=== PATIENT | female | born 1990 | race Hispanic/Latino ===

== ENCOUNTER 2022-06-08 17:03 | Emergency (ER) | payer BC ==
--- OUTSIDE RECORDS SUMMARY | 2022-06-08 17:05 | XMS REPORT | Continuity of Care Document ---
:1990 Author Organization [facility] t Address [address] [place] [address] Care Team Providers Name Role Phone Unavailable Unavailable Unavailable Payers Payer Name Policy Type Policy Number Effective Date Expiration Date S ource [employer] FED [employer] [id number] 2016 00:00:00 Problems This patient has no known problems. Allergies, Adverse Reactions, Alerts Allergy Allergy Status Severity Reaction(s) Onset Inactive Treating Comm ents Source Name Type Date Date Clinician PENICILL Drug Active Anaphylaxis Uni vers INS Class 7-08 ity of 00:00: [address] Medications This patient has no known medications. Procedures This patient has no known procedures. Encounters Start End Encounter Admission Attending Care Care Encounter Source Date/Time Date/Time Type Type Clinicians Facility Department ID 2020-04-02 2020-04-02 Outpatient R [facility] [id number] [address] 08:00:00 08:00:00 ity of [facility] Results This patient has no known results.
[2022-06-08] MEDS ORDERED: ACT CHARCOAL/SORB 50 GM/240ML ONE (17:30)
--- NOTE | 2022-06-08 17:37 | ER ---
Nurse's Notes [facility] Name: Tana Wallace Age: 32 yrs Sex: Female : 1990 Arrival Date: 06/08/2022 Time: 17:05 Bed 7 Private MD: Diagnosis: Suicide attempt;Depression Presentation: 06/08 17:12 Chief complaint: Patient states: I took 20, 20mg Citalopram aprox 45min ago. states [facility] that she has been feeling depressed and has been stressed out about work. Pt stated that she attempted to vomit but nothing came up. Coronavirus screen: Vaccine status: Patient reports receiving the 2nd dose of the covid vaccine. Ebola Screen: Patient negative for fever greater than or equal to 101.5 degrees Fahrenheit, and additional compatible Ebola Virus Disease symptoms Patient denies exposure to infectious person. Patient denies travel to an Ebola-affected area in the 21 days before illness onset. Initial Sepsis Screen: Does the patient meet any 2 criteria? No. Patient's initial sepsis screen is negative. Does the patient have a suspected source of infection? No. Patient's initial sepsis screen is negative. Risk Assessment: Do you want to hurt yourself or someone else? Patient reports desire/thoughts of hurting themselves or someone else. Provider notified. Onset of symptoms was June 08, 2022. 17:12 Method Of Arrival: Ambulatory [facility] 17:12 Acuity: ABBIE 2 [facility] Historical: - Allergies: 17:15 egg yolks; [facility] 17:15 PENICILLINS; [facility] - PMHx: 17:15 Asthma; Depressive disorder; [facility] - Immunization history:: Adult Immunizations up to date. - Social history:: Smoking status: unknown. Screenin:16 Abuse screen: Denies threats or abuse. Denies injuries from another. Nutritional [facility] screening: No deficits noted. Tuberculosis screening: No symptoms or risk factors identified. Fall Risk Assessment: 17:17 General: Appears obese, unkempt, Behavior is anxious, crying. General: contacted poison [facility] control reference #[id number] spoke with Hernando who advised that pt can have charcoal x1 and complete basic OD labs. evaluation for 6-8 hr before medically cleared. . Pain: Denies pain. Complains of pain in face Pain currently is 4 out of 10 on a pain scale. Quality of pain is described as aching, Pain began gradually, Is continuous, Alleviated by nothing. 20:52 Reassessment: Patient in low pelaez's in bed, aware of treatment plan, denies pain or aa9 concerns. sitter at bedside. 22:41 Reassessment: Tracy (mother) [phone] Kirill Wallace () [phone]. aa9 Patient ambulated to restroom independently. Denies any pain or concerns at this time. 06/09 02:00 Reassessment: Patient and/or family updated on plan of care and expected duration. Pain aa9 level reassessed. Patient denies pain at this time. pt supine in bed, breathing equal and unlabored, denies concerns at this time.. Overdose: 04:14 [place] Suicide Severity Screening: "In the past month, have you wished you were aa9 or wished you could go to sleep and not wake up?" Patient responds "yes." "In the past month, have you actually had any thoughts of killing yourself?" Patient responds "yes." Based off client's responses, additional C-SSRS screening questions required. "In your lifetime, have you ever done anything, started to do anything, or prepared to do anything to end your life?" Patient responds "yes." Patient reports suicidal intent within 3 past months. 04:15 [place] Suicide Severity Screening: "In the past month, have you wished you were aa9 or wished you could go to sleep and not wake up?" Patient responds "yes." Based off client's responses, additional C-SSRS screening questions required. Vital Signs: 06/08 17:12 BP 129 / 79; Pulse 89; Resp 17; Temp 98.2; Pulse Ox 99% ; Weight 94.35 kg; Height 5 ft. jh6 4 in. (162.56 cm); Pain 3/10; 20:46 BP 105 / 60; Pulse 94; Resp 15 S; Pulse Ox 100% on R/A; aa9 23:48 BP 116 / 75; Pulse 77; Pulse Ox 99% on R/A; aa9 06/09 01:58 BP 116 / 64; Pulse 75; Resp 16 S; Pulse Ox 100% on R/A; Pain 0/10; aa9 06/08 17:12 Body Mass Index 35.70 (94.35 kg, 162.56 cm) [facility] ED Course: 06/08 17:05 Patient arrived in ED. bd 17:06 Tana Acharya, RN is Primary Nurse. [facility] 17:07 Librado Quiñonez DO is Attending Physician. ms3 17:15 Triage completed. [facility] 17:16 Arm band placed on left wrist. Patient placed in the treatment room, on a stretcher, on [facility] monitoring manager, on pulse oximetry, Patient clothing removed and placed in gown. 17:16 Initial lab(s) drawn, by wy, sent to lab. EKG done, by ED staff, reviewed by Librado [facility] Olamide DOWNEY. Inserted saline lock: 20 gauge in left antecubital area, using aseptic technique. 19:20 Primary Nurse role handed off by Tana Acharya, FIDELINA [facility] 06/09 01:04 faxed patient clinicals to all available [facility] facilities. [facility] 03:14 Nurse to Nurse with Katelyn from [facility]. [facility] 03:19 administrative approval given Amaury Avalos/ patient has been accepted to [address]/ Dr. Lowery accepted the patient in transfer. 04:13 Caitlyn John, FIDELINA is Primary Nurse. [facility] 04:14 No provider procedures requiring assistance completed. IV discontinued, intact, aa9 bleeding controlled, No redness/swelling at site. Pressure dressing applied. 04:16 Patient has correct armband on for positive identification. aa9 Administered Medications: 06/08 17:27 Drug: Charcoal (activated charcoal) Suspension 50 grams Route: PO; [facility] 06/09 04:13 Follow up: Response: No adverse reaction 9 06/08 17:28 Drug: NS 0.9% 1000 ml Route: IV; Rate: 1000 ml; Site: left antecubital; [facility] 06/09 04:13 Follow up: Response: No adverse reaction; IV Status: Completed infusion; IV Intake: aa9 950ml Medication: 04:14 VIS not applicable for this client. aa9 Intake: 04:13 IV: 950ml; Total: 950ml. aa9 Outcome: 06/08 17:36 ER care complete, transfer ordered by . ms3 06/09 04:15 Transferred by ground EMS Transfer form completed. Note: [facility] aa9 Condition: stable Discharge instructions given to patient, Instructed on discharge instructions, follow up and referral plans. the need for transfer, Demonstrated understanding of instructions, follow-up care. 04:16 Patient left the ED. aa9 Signatures: Keisha Pérez MyKena mw2 Libraod Quiñonez DO DO ms3 Tana Acharya, RN RN jh6 Caitlyn John RN RN aa9
--- NOTE | 2022-06-08 17:37 | EDPHYS ---
Physician Documentation [facility] Name: Tana Wallace Age: 32 yrs Sex: Female : 1990 Arrival Date: 06/08/2022 Time: 17:05 Bed 7 Private MD: ED Physician Librado Quiñonez HPI: 06/08 17:12 This 32 yrs old Female presents to ER via Unassigned with complaints of ms3 Overdose. 17:12 32-year-old female with past medical history of anxiety and depression presents via POV ms3 after taking 20-20 mg citalopram tablets 20 minutes prior to arrival. Patient denies pain at this time. Patient states she has had a lot of depression and anxiety lately related with her job and her boss. Patient denies alleviating or inciting factors. Patient denies previous suicide attempts.. Historical: - Allergies: 17:15 egg yolks; jh6 17:15 PENICILLINS; jh6 - PMHx: 17:15 Asthma; Depressive disorder; 6 - Immunization history:: Adult Immunizations up to date. - Social history:: Smoking status: unknown. ROS: 17:12 Constitutional: Negative for fever, and chills. Neck: Negative for injury, pain, and ms3 swelling, Cardiovascular: Negative for chest pain, and palpitations. Respiratory: Negative for shortness of breath, cough, wheezing, and pleuritic chest pain, Abdomen/GI: Negative for abdominal pain, nausea, vomiting, diarrhea, and constipation. 17:12 Neuro: Positive for headache. 17:12 All other systems are negative. Exam: 17:12 Constitutional: This is a well developed, well nourished patient who is awake, alert, ms3 and in no acute distress. Head/Face: Normocephalic, atraumatic. Neck: Trachea midline, no cervical lymphadenopathy. Supple, full range of motion without nuchal rigidity, or vertebral point tenderness. No Meningismus. Chest/axilla: Normal chest wall appearance and motion. Nontender with no deformity. Cardiovascular: Regular rate and rhythm with a normal S1 and S2. No gallops, murmurs, or rubs. Normal PMI, no JVD. No pulse deficits. Respiratory: Lungs have equal breath sounds bilaterally, clear to auscultation and percussion. No rales, rhonchi or wheezes noted. No increased work of breathing, no retractions or nasal flaring. Abdomen/GI: Soft, non-tender, with normal bowel sounds. No distension or tympany. No guarding or rebound. No evidence of tenderness throughout. Skin: Warm, dry with normal turgor. Normal color with no rashes, no lesions, and no evidence of cellulitis. MS/ Extremity: Pulses equal, no cyanosis. Neurovascular intact. Full, normal range of motion. Neuro: Awake and alert, GCS 15, oriented to person, place, time, and situation. Cranial nerves II-XII grossly intact. Motor strength 5/5 in all extremities. Sensory grossly intact. Cerebellar exam normal. Normal gait. Psych: Awake, alert, with orientation to person, place and time. Behavior, mood, and affect are within normal limits. 17:12 ECG was reviewed by the Attending Physician. ms3 Vital Signs: 17:12 BP 129 / 79; Pulse 89; Resp 17; Temp 98.2; Pulse Ox 99% ; Weight 94.35 kg; Height 5 ft. jh6 4 in. (162.56 cm); Pain 3/10; 20:46 BP 105 / 60; Pulse 94; Resp 15 S; Pulse Ox 100% on R/A; aa9 23:48 BP 116 / 75; Pulse 77; Pulse Ox 99% on R/A; aa9 06/09 01:58 BP 116 / 64; Pulse 75; Resp 16 S; Pulse Ox 100% on R/A; Pain 0/10; aa9 06/08 17:12 Body Mass Index 35.70 (94.35 kg, 162.56 cm) [facility] MDM: 06/08 17:07 Patient medically screened. ms3 17:11 ED course: Case discussed with poison control. Recommend activated charcoal, watch for ms3 serotonin syndrome. Observe for 6-8 hours.. 23:57 Differential diagnosis: Ingestion/exposure to anti-depressant. Data reviewed: vital rn signs, nurses notes, lab test result(s), EKG, and as a result, I will admit patient. Counseling: I had a detailed discussion with the patient and/or guardian regarding: the historical points, exam findings, and any diagnostic results supporting the discharge/admit diagnosis, lab results, the need to transfer to another facility, for higher level of care, [facility] does not immediately have the required specialist. Response to treatment: the patient's symptoms have markedly improved after treatment. 23:57 ED course: Pt medically cleared, initiating transfer to psychiatric facility now. . rn 06/08 17:08 Order name: Acetaminophen; Complete Time: 18:55 ms3 06/08 17:08 Order name: BMP; Complete Time: 18:55 ms3 06/08 17:08 Order name: CBC with Diff; Complete Time: 18:55 ms3 06/08 17:08 Order name: Ethanol; Complete Time: 18:55 ms3 06/08 17:08 Order name: Hepatic Function; Complete Time: 18:55 ms3 06/08 17:08 Order name: Protime (+inr); Complete Time: 18:55 ms3 06/08 17:08 Order name: Ptt, Activated; Complete Time: 18:55 ms3 06/08 17:08 Order name: Salicylate; Complete Time: 18:55 ms3 06/08 17:08 Order name: Urine Drug Screen; Complete Time: 23:57 ms3 06/08 19:23 Order name: Urine Dipstick-Ancillary; Complete Time: 23:57 EDMS 06/08 20:56 Order name: SARS RAPID; Complete Time: 23:57 mw2 06/08 17:08 Order name: EKG; Complete Time: 17:09 ms3 06/08 17:08 Order name: Cardiac monitoring; Complete Time: 18:07 ms3 06/08 17:08 Order name: EKG - Nurse/Tech; Complete Time: 18:07 ms3 06/08 17:08 Order name: IV Saline Lock; Complete Time: 18:07 ms3 06/08 17:08 Order name: Labs collected and sent; Complete Time: 18:07 ms3 06/08 17:08 Order name: O2 Per Protocol; Complete Time: 18:07 ms3 06/08 17:08 Order name: O2 Sat Monitoring; Complete Time: 18:07 ms3 06/08 17:08 Order name: Suicide Precautions; Complete Time: 19:07 ms3 06/08 17:08 Order name: Suicide Screening ([place]); Complete Time: 19:07 ms3 06/08 17:08 Order name: Urine Dipstick-Ancillary (obtain specimen); Complete Time: 19:23 ms3 06/08 17:08 Order name: Urine Test (obtain specimen); Complete Time: 19:23 ms3 06/08 20:24 Order name: Diet Finger Food; Complete Time: 20:24 lg3 EC:12 Rate is 102 beats/min. Rhythm is regular. QRS [place] is Normal. ID interval is normal. ms3 Clinical impression: Sinus tachycardia. Interpreted by me. Reviewed by me. Administered Medications: 17:27 Drug: Charcoal (activated charcoal) Suspension 50 grams Route: PO; [facility] 06/09 04:13 Follow up: Response: No adverse reaction aa9 06/08 17:28 Drug: NS 0.9% 1000 ml Route: IV; Rate: 1000 ml; Site: left antecubital; [facility] 06/09 04:13 Follow up: Response: No adverse reaction; IV Status: Completed infusion; IV Intake: aa9 950ml Disposition Summary: 06/08/22 17:36 Transfer Ordered Transfer Location: [facility] ms3 Reason: Higher level of care ms3 Condition: Stable ms3 Problem: new ms3 Symptoms: are unchanged ms3 Accepting Physician: (06/09/22 04:16) aa9 Diagnosis - Suicide attempt ms3 - Depression ms3 Forms: - Medication Reconciliation Form ms3 - SBAR form ms3 Signatures: Dispatcher [employer] EDTyrone Banerjee MD MD rn Sims, Marcus, DO DO ms3 Tana Acharya RN RN jh6 Caitlyn John, FIDELINA RN aa9 Corrections: (The following items were deleted from the chart) 04:16 06/08 17:36 ms3 aa9
[2022-06-08 17:49] LABS: Protime INR 0.94
[2022-06-08 18:08] LABS: ALT/SGPT 20 U/L (12-78); AST/SGOT 11 U/L (15-37); Albumin 3.6 g/dL (3.4-5.0); Alkaline Phosphatase 60 U/L (45-117); BUN Blood Urea Nitrogen 9 mg/dL (7-18); Bicarbonate 28 mmol/L (21-32); Bilirubin Direct 0.1 mg/dL (0-0.2); Bilirubin Total 0.3 mg/dL (0.2-1.0); Glomerular Filtration Rate 120 ml/min (=/>90); Glucose Level 110 mg/dL (74-106); Potassium 3.6 mmol/L (3.5-5.1); Protein, Total 7.9 g/dL (6.4-8.2); Sodium Level 140 mmol/L (136-145)
[2022-06-08 18:26] LABS: Absolute Lymphocytes (CBC) 2.3 K/uL (0.7-4.9); Hematocrit 45.3 % (36.0-45.0); MCV 86.2 fL (80-100); MPV 9.8 fL (7.6-11.3); RBC Red Blood Cell Count 5.25 M/uL (3.86-4.86)
[2022-06-08 19:23] LABS: Urine Blood Negative (Negative); Urine Glucose Negative (Negative); Urine Protein Negative (Negative); Urine Specific Gravity >=1.030 (1.005-1.030); Urine pH 5.5 (5.0-7.0)
[2022-06-08 19:40] LABS: Barbiturates NEGATIVE (NEGATIVE); Benzodiazepines NEGATIVE (NEGATIVE); Cocaine NEGATIVE (NEGATIVE); METHAMPHETAM NEGATIVE (NEGATIVE); Methadone NEGATIVE (NEGATIVE); Opiates NEGATIVE (NEGATIVE); Phencyclidine NEGATIVE (NEGATIVE); THC Cannibis NEGATIVE (NEGATIVE)
[2022-06-08 21:43] LABS: SARS-CoV-2 Antigen Rapid Res Negative (Negative)
[2022-06-09 06:44] VITALS: TEMP 98.2
[2022-06-09 06:52] VITALS: BP 116/64; O2SAT 100
--- NOTE | 2022-06-09 13:57 | EKG ---
Test Date: 2022-06-08 Test Time: 17:12:51 [employer]: DOLORES MEASUREMENT RESULTS: Intervals: Rate: 102 AK: 122 QRSD: 84 QT: 362 QTc: 471 [place]: P: 63 AK: 122 QRS: 89 T: 33 INTERPRETIVE STATEMENTS: Sinus tachycardia Otherwise normal ECG Compared to ECG 01/25/2021 13:38:05 Sinus rhythm no longer present Sinus arrhythmia no longer present Electronically Signed On 06-09-22 13:56:54 CDT by Messi Mercer
== END 2022-06-09 04:16 ==
LOC: ER 17:03
DX: T50.902A Poisoning by unspecified drugs, medicaments and biological substances, intentional self-harm, initial encounter (principal); F32.A Depression, unspecified; Z20.822 Contact with and (suspected) exposure to COVID-19; Z88.0 Allergy status to penicillin; Z91.012 Allergy to eggs
CPT/HCPCS: 36415; 80048; 80076; 80307; 80320; 80329; 81003; 85025; 85610; 85730; 87811; 93005; 96360; 96361; 99285